=== PATIENT | female | born 1935 | race African-American/Black ===

== ENCOUNTER → 2016-09-28 | Outpatient (CLI) | payer MEDICARE ==
[~2016-09-28] VITALS: Ht 160 cm; Wt 51.7 kg
[~2016-09-28] MED LIST: CATAPRES0.1 MG ORAL; CATAPRES0.2 MG ORAL; no medication
[2016-09-28 16:27] VITALS: BP 223/136
--- NOTE | 2016-09-28 21:28 | Consultation ---
DATE OF CONSULTATION: 09/28/2016 CHIEF COMPLAINT: Weight loss. HISTORY OF PRESENT ILLNESS: The patient is a very pleasant 80-year-old female without any significant past medical history. This is a patient of Dr. Patel. She lost about 6 pounds over the last few months, unwanted. There is no change in bowel habit. No melena. No hematochezia. PAST MEDICAL HISTORY: None. ALLERGIES: None. MEDICATIONS: None. SOCIAL HISTORY: Denies any tobacco, alcohol, or drug abuse. FAMILY HISTORY: Father had coronary artery disease. Mother had breast cancer. REVIEW OF SYSTEMS: A 10-point review of system was performed and pertinent positives are in the HPI. PHYSICAL EXAMINATION: VITAL SIGNS: Temperature is 97.6, pulse 93 respirations 20, blood pressure 224/120, and saturations 100%. HEENT: Normocephalic and atraumatic. Sclerae anicteric. NECK: Supple. No evidence of lymphadenopathy. CARDIOVASCULAR: Regular rate and rhythm. Plus S1 and S2. LUNGS: Clear breath sounds bilaterally. ABDOMEN: Soft and nontender. No rebound. No guarding. EXTREMITIES: No cyanosis. No clubbing. No edema. ASSESSMENT: The patient is a 80-year-old female with unwanted weight loss endoscopy and colonoscopy. PLAN: Schedule the patient for endoscopy and colonoscopy on 10/06/2016. On the procedure day, we will check labs including CBC, CMP, and tumor markers. If the endoscopy and colonoscopy are negative, we will plan to do a plain CT for evaluation of weight loss. I want to thank Dr. Patel for this kind referral. Keven Kendrick M.D. DR: AMAN JOB#: [id number] CC:
== END | disposition home or self-care (01) ==
LOC: PAN 13:44
DX: R63.4 Abnormal weight loss (principal); Z82.49 Family history of ischemic heart disease and other diseases of the circulatory system; Z80.3 Family history of malignant neoplasm of breast
CPT/HCPCS: 99202

== ENCOUNTER → 2016-10-06 | Day surgery (SDC) | payer MEDICARE ==
[2016-10-06] VITALS (7 sets, daily range): BP systolic 141–178; BP diastolic 75–90
[~2016-10-06] VITALS: Ht 160 cm; Wt 52.2 kg
[~2016-10-06] MED LIST changes: +LR 1000ml ONE; +Lidocaine 1% MPF 10mg/ml 5ml ONE; +Propofol 10mg/ml 20ml IV ONE
--- NOTE | 2016-10-06 09:29 | Short Stay Surgery H&P ---
History of Present Illness History of Present Illness Chief Complaint wt loss see recent consult note HPI Alison Seth is a 81 year old female who was admitted on for Weight Loss Patient History Allergies: Coded Allergies: No Known Allergies (Unverified , 09/28/16) PAST MEDICAL HISTORY: Past Surgeries: Social History: Medication History Miscellaneous Medications [no medication ], (Reported) Plan Attestation Are the patient's medical conditions optimized for surgery? YUNIOR LUNA Oct 06, 2016 09:29
--- NOTE | 2016-10-06 09:29 | Pre-Procedure Note/Attestation ---
Pre-Procedure Note/Attestation Complete Prior to Procedure Planned Procedure: not applicable Procedure Narrative: egd/colon Indications for Procedure Pre-Operative Diagnosis: wt loss Attestation I attest that I discussed the nature of the procedure; its benefits; risks and complications; and alternatives (and the risks and benefits of such alternatives ), prior to the procedure, with the patient (or the patient's legal customer development representative). I attest that, if there was a reasonable possibility of needing a blood transfusion, the patient (or the patient's legal customer development representative) was given the [facility] standardized written summary, pursuant to the [place] Blood Safety Act ([place] Health and Safety Code # 1645, as amended). I attest that I re-evaluated the patient just prior to the surgery and that there has been no change in the patient's H&P, except as documented below: YUNIOR LUNA Oct 06, 2016 09:29
--- NOTE | 2016-10-06 10:48 | Endoscopy Procedure Note ---
Endoscopy Procedure Note Indication for Procedure: wt loss Procedures Performed: EGD, colonoscopy Operative Findings/Diagnosis: one polyp Specimen: yes Pt Tolerated Procedure Well: Yes Estimated Blood Loss: none Anesthesiologist: latoya Anesthesia: MAC Implant(s) used?: No 50 yrs or older w/o bx or poly: No 10yrs. F/U not recommended: Yes If not recommended, why?: Above average risk 10 yrs. F/U needed: Yes 18 years or older w/prev. colo: No YUNIOR LUNA Oct 06, 2016 10:48
--- NOTE | 2016-10-06 10:55 | Immediate Post-Op Evaluation ---
Immediate Post-Op Evalulation Immediate Post-Op Evalulation Procedure: egd/colonoscopy Date of Evaluation: Oct 06, 2016 Time of Evaluation: 10:53 IV Fluids: 500 Blood Pressure Systolic: 147 Blood Pressure Diastolic: 58 Pulse Rate: 67 Respiratory Rate: 14 O2 Sat by Pulse Oximetry: 100 Temperature (Fahrenheit): 98.1 Nausea: No Vomiting: No Complications none Patient Status: awake, reacts, patent Hydration Status: adequate Drug: none KAYLIN PIMENTEL CRNA Oct 06, 2016 10:55
--- NOTE | 2016-10-06 10:57 | Anethesia Preoperative Eval ---
Anesthesia Pre-op PMH/ROS General Date of Evaluation: Oct 06, 2016 Time of Evaluation: 10:10 Anesthesiologist: adonis ASA Score: ASA 2 Mallampati Score Class I : Soft palate, uvula, fauces, pillars visible Class II: Soft palate, uvula, fauces visible Class III: Soft palate, base of uvula visible Class IV: Only hard plate visible Mallampati Classification: Class II Surgeon: jack Diagnosis: weight loss Surgical Procedure: EGD/Colonoscopy Anesthesia History: none, PONV Family History: no anesthesia problems Allergies: Coded Allergies: No Known Allergies (Unverified , 09/28/16) Medications: see eMAR Past Medical History Cardiovascular: Reports: HTN Pulmonary: Denies: COPD, KOFI, asthma, other Gastrointestinal/Genitourinary: Denies: CRI, ESRD, GERD, other Neurologic/Psychiatric: Denies: CVA, TIA, dementia, depression/anxiety, other Endocrine: Denies: DM, hypothyroidism, other, steroids HEENT: Denies: LOVELOCK (L), LOVELOCK (R), cataract (L), cataract (R), glaucoma, other Hematology/Immune: Denies: DVT, anemia, bleeding disorder, other Musculoskeletal/Integumentary: Denies: DDD, DJD, OA, RA, edema, other PSxH Narrative: none Anesthesia Pre-op Phys. Exam Physician Exam Last Vital Signs Date Time Temp Pulse Resp B/P Pulse Ox O2 Delivery O2 Flow Rate FiO2 10/06/16 09:43 98.1 20 178/90 100 Room Air 10/06/16 09:42 75 Constitutional: NAD Neurologic: CN 2-12 intact Cardiovascular: RRR Respiratory: CTA Gastrointestinal: S/NT/ND Airway Exam Mallampati Classification 2 Mallampati Score: Class II MO: full Dentures: no lower, no upper Anesthesia Pre-op A/P Studies Pre-op Studies: EKG - SR Risk Assessment & Plan Plan: mac Status Change Before Surgery: No Pre-Antibiotics Drug: none KAYLIN PIMENTEL CRNA Oct 06, 2016 10:57
--- NOTE | 2016-10-06 11:13 | 48 Hour Post Anesthesia Eval ---
Post Anesthesia Evaluation Procedure: egd/colonoscopy Date of Evaluation: Oct 06, 2016 Time of Evaluation: 11:12 Blood Pressure Systolic: 155 0: 74 Pulse Rate: 70 O2 Sat by Pulse Oximetry: 99 Airway: patent Nausea: No Vomiting: No Hydration Status: adequate Mental Status/LOC: patient returned to baseline Post-Anesthesia Complications: none Follow-up care needed: N/A KAYLIN PIMENTEL CRNA Oct 06, 2016 11:13
--- NOTE | 2016-10-06 17:18 | Procedure Note ---
DATE OF PROCEDURE: 10/06/2016 SURGEON: Keven Kendrick M.D. PROCEDURE: Upper endoscopy with biopsy and colonoscopy with biopsy. ANESTHESIA: Per LYE TREATER, Breanne Tarrillion. INSTRUMENT: Olympus adult flexible upper endoscope and colonoscope. INDICATION: 1. Weight loss. 2. Screening colonoscopy evaluation. REASON FOR PROCEDURE: The procedure, risks, benefits, and possible consequences, including hemorrhage, aspiration, perforation and infection, and alternative treatments, were explained to the patient/legal guardian by Dr. Keven Kendrick and the patient/legal guardian understood and accepted these risks. DESCRIPTION OF PROCEDURE: After informed consent was obtained and the patient was adequately sedated, Olympus upper endoscope was advanced from mouth into the second portion of the duodenum and retroflexion was performed of the stomach. The patient had evidence of diffuse gastritis. Random biopsy from antrum was obtained to rule out H. pylori infection. Otherwise, the rest of the upper endoscopic examination was grossly within normal limits. At this time, the upper endoscope was retrieved and the patient was turned over for colonoscopy. First, a rectal exam was performed, which was normal. Then, the scope was advanced from rectum into the cecum documented by appendiceal orifice, ileocecal valve, and right upper quadrant palpation. Quality of prep was very good. The patient had one diminutive polyp in the rectum area, which was biopsied. The patient had evidence of moderate sigmoid diverticulosis. No obvious mass or other pathology was seen. Retroflexion of rectum showed evidence of medium-sized nonbleeding internal hemorrhoids. The patient tolerated the procedure very well without any complication. SUMMARY OF FINDINGS: 1. Gastritis, status post biopsy to rule out H. pylori infection. 2. One colonic polyp removed, see above for details. 3. Diverticulosis. 4. Internal hemorrhoids. RECOMMENDATIONS: 1. Follow up biopsies and treat accordingly. 2. We will send the tumor markers today to rule out CA-19-9 and also the patient to follow up in the office for further workup of weight loss. Keven Kendrick M.D. DR: ERAN JOB#: [id number] CC:
--- NOTE | 2016-10-10 00:14 | Cardiology Report ---
APPROVED REPORT EKG Measurement Heart [id number] Normal sinus rhythm Possible Left atrial enlargement Cannot rule out Anterior infarct, age undetermined Abnormal ECG
== END | disposition home or self-care (01) ==
LOC: GAS 08:48
DX: Z12.11 Encounter for screening for malignant neoplasm of colon (principal); K62.1 Rectal polyp; K57.30 Diverticulosis of large intestine without perforation or abscess without bleeding; K64.8 Other hemorrhoids; R63.4 Abnormal weight loss; K29.70 Gastritis, unspecified, without bleeding; K31.9 Disease of stomach and duodenum, unspecified; I10 Essential (primary) hypertension
CPT/HCPCS: 36415; 43239; 45380; 82150; 83690; 86301; 93005; J2704; J7120; 94003; 94150

== ENCOUNTER → 2016-10-24 | Outpatient (CLI) | payer MEDICARE ==
[~2016-10-24] MED LIST changes: -LR 1000ml ONE; -Lidocaine 1% MPF 10mg/ml 5ml ONE; -Propofol 10mg/ml 20ml IV ONE
[2016-10-24 10:23] VITALS: BP 169/100
--- NOTE | 2016-10-24 10:53 | GI Progress Note ---
Assessment/Plan Problems: (1) Weight loss ICD Codes: R63.4 - Abnormal weight loss SNOMED: 21470532, 831126577 (2) Polyp, colonic ICD Codes: K63.5 - Polyp of colon SNOMED: 77550077 Status: stable Status Narrative Seen with Dr. Kendrick. Assessment/Plan ordered APCT RTC post imaging study repeat colonoscopy x 5 years Subjective Gastrointestinal/Abdominal: Reports: no symptoms Subjective here for colonoscopy review weight loss Objective Last 24 Hour Vital Signs Date Time Temp Pulse Resp B/P Pulse Ox O2 Delivery O2 Flow Rate FiO2 10/24/16 10:23 98.6 80 16 169/100 Weight (Pounds): 116 General Appearance: no apparent distress, alert, thin Cardiovascular: normal rate Respiratory/Chest: normal breath sounds, no respiratory distress Abdominal Exam: normal bowel sounds, non tender, soft Extremities: normal range of motion Meghana Noel N.P. Oct 24, 2016 10:53
== END | disposition home or self-care (01) ==
LOC: PAN 09:50
DX: K63.5 Polyp of colon (principal); R63.4 Abnormal weight loss
CPT/HCPCS: 99211

== ENCOUNTER → 2016-11-06 | Outpatient (CLI) | payer MEDICARE ==
[2016-11-06 08:44] LABS: CREATININE 1.6 mg/dL (0.5-0.9)
--- NOTE | 2016-11-06 13:51 | Diagnostic Imaging Report ---
\H\Indication\N\: Weight loss, history of left breast biopsy, renal insufficiency \H\Technique\N\: No IV contrast, due to history of renal insufficiency. Patient given enteric contrast. Spiral acquisitions obtained through the chest, abdomen, and pelvis. Multiplanar reconstructions were generated. Total dose length product 669 mGycm. CTDIvol(s) 11 mGy. Radiation dose was minimized using automated exposure control \H\Comparison\N\: None \H\Findings\N\: Chest: Bands of linear atelectasis or scarring are seen at the left lung base. Some scarring is seen in the bilateral lung apices. 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 Lungs are otherwise clear. No infiltrates, effusions, congestion, masses, or nodules are demonstrated. The heart size is normal. There is minimal anterior wall pericardial thickening versus fluid. No mediastinal or hilar mass or adenopathy. No axillary or chest wall mass or adenopathy. Breast parenchyma is unusually dense for the patient's age. There is a left breast calcification and possibly associated 9 mm nodule seen in the left breast, image 43 of series 3. This is at about the 11:00 position. The esophagus is mildly distended with gas and there may be some distal esophageal wall thickening. Abdomen pelvis: The appendix is normal. There is extensive colonic diverticulosis. No evidence of diverticulitis. No small bowel distention or small bowel wall thickening. Contrast is seen to traverse the entirety of the small bowel extends well into the colon, reaching the proximal descending. The stomach is unremarkable. There is a small duodenal diverticulum. No free or loculated intraperitoneal air or fluid. Lack of IV contrast limits assessment of the solid organs. The liver, gallbladder, bile ducts, pancreas are unremarkable. 2 subcentimeter low-attenuation lesions are seen within the spleen. The adrenals and kidneys are unremarkable. No retroperitoneal or mesenteric mass or adenopathy. No pelvic mass or adenopathy. Uterus is somewhat prominent for age. It contains a calcification. The bones demonstrate degenerative spondylosis changes. There is slight anterior offset of L4 on L5 and of L5 on S1. No associated pars defect. There is a superior endplate is slight anterior wedge compression fracture deformity of the L2 vertebral body. There are extensive degenerative changes of both hips, possibly posttraumatic changes of the left hip. \H\Impression\N\: Possible 9 mm nodule and calcification 11:00 in the left breast. Correlate with recent breast workup, consider followup mammography and ultrasound as clinically indicated. No acute pulmonary process. There is some scarring in the apices and left lung base Equivocal mild distal esophageal wall thickening, if real could indicate esophagitis No acute abdominal process L2 vertebral body compression fracture, age indeterminate. Consider MRI for better characterization if this is considered clinically relevant 2 subcentimeter splenic lesions, not otherwise characterizable but possibly cysts Diverticulosis. No evidence of diverticulitis Prominent uterus with calcification, probably reflecting fibroid uterus Degenerative spondylosis,, mild spinal alignment abnormality, bilateral hip degenerative changes, left hip possible chronic posttraumatic changes The CT scanner at [facility] is accredited by the [employer] and the scans are performed using protocols designed to limit radiation exposure to as low as reasonably achievable to attain images of sufficient resolution adequate for diagnostic evaluation.
== END | disposition home or self-care (01) ==
LOC: CAT 08:19
DX: R63.4 Abnormal weight loss (principal); K57.90 Diverticulosis of intestine, part unspecified, without perforation or abscess without bleeding; M47.9 Spondylosis, unspecified
CPT/HCPCS: 36415; 71250; 74176; 82565; 84520

== ENCOUNTER 2016-11-14 09:16 | Outpatient (CLI) | payer MEDICARE ==
--- NOTE | 2016-11-14 09:48 | GI Progress Note ---
Assessment/Plan Problems: (1) Esophagitis ICD Codes: K20.9 - Esophagitis, unspecified SNOMED: 17945100 (2) HTN (hypertension) ICD Codes: I10 - Essential (primary) hypertension SNOMED: 95399414 (3) Diverticulum of duodenum ICD Codes: K57.10 - Diverticulosis of small intestine without perforation or abscess without bleeding SNOMED: 878838821 (4) Weight loss ICD Codes: R63.4 - Abnormal weight loss SNOMED: 55097179, 460010417 (5) Polyp, colonic ICD Codes: K63.5 - Polyp of colon SNOMED: 63410559 Status: unchanged Status Narrative Seen with Dr. Kendrick. Assessment/Plan EGD/colonoscopy unremarkable for concerns of weight loss APCT reviewed with patient >> esophagitis, duodenal diverticulum pt being seen for 9mm breast nodule elevated BP >> pt being followed by Dr. Reyes, was last seen yesterday and started on new BP regime. cont protonix RTC x 3 months Subjective Gastrointestinal/Abdominal: Reports: no symptoms Subjective weight loss of 10 lbs over period of 3-4 months, stable now. Objective T 98.0 BP 192/108 P 79 96 RA WT 115.5 >> stable General Appearance: no apparent distress, alert, thin Cardiovascular: normal rate Respiratory/Chest: normal breath sounds, no respiratory distress Abdominal Exam: normal bowel sounds, non tender, soft Extremities: normal range of motion Meghana Noel NPhilip November 14, 2016 09:48
[2016-11-14] MEDS ORDERED: NORMODYNE200 MG ORAL (09:49)
[2016-11-14] MEDS ORDERED: PROTONIX40 MG ORAL (09:49)
== END 2016-11-14 09:51 | disposition home or self-care (01) ==
LOC: PAN 09:16
DX: K57.10 Diverticulosis of small intestine without perforation or abscess without bleeding (principal); K20.9 Esophagitis, unspecified; I10 Essential (primary) hypertension; R63.4 Abnormal weight loss; K63.5 Polyp of colon
CPT/HCPCS: 99211

== ENCOUNTER 2017-02-13 09:06 | Outpatient (CLI) | payer MEDICARE ==
[~2017-02-13 09:06] MED LIST changes: +NORMODYNE200 MG ORAL; +PROTONIX40 MG ORAL
[2017-02-13 09:17] VITALS: BP 137/70
--- NOTE | 2017-02-13 09:34 | GI Progress Note ---
Assessment/Plan Problems: (1) Esophagitis ICD Codes: K20.9 - Esophagitis, unspecified SNOMED: 03082385 (2) Weight loss ICD Codes: R63.4 - Abnormal weight loss SNOMED: 11249203, 721523363 (3) Polyp, colonic ICD Codes: K63.5 - Polyp of colon SNOMED: 52752610 (4) Diverticulum of duodenum ICD Codes: K57.10 - Diverticulosis of small intestine without perforation or abscess without bleeding SNOMED: 973463921 Status: stable Status Narrative Discussed with Dr. Kendrick. Assessment/Plan Endoscopy Procedure Note Indication for Procedure: wt loss Procedures Performed: EGD, colonoscopy Operative Findings/Diagnosis: one polyp YUNIOR KENDRICK - Oct 06, 2016 10:48 weight stable RTC prn repeat colonoscopy x 5 years Subjective Subjective wt loss follow up yesterday had the following Breakfast; toast x 1, coffee, boost / ensure x 2 Lunch: Noodles Supper: Pizza 1/2 slice. Enchilada Objective Last 24 Hour Vital Signs Date Time Temp Pulse Resp B/P Pulse Ox O2 Delivery O2 Flow Rate FiO2 02/13/17 09:17 98.3 81 16 137/70 Weight (Pounds): 114 General Appearance: no apparent distress, alert Cardiovascular: normal rate Respiratory/Chest: lungs clear, normal breath sounds Abdominal Exam: normal bowel sounds, non tender, soft Extremities: normal range of motion Meghana Noel N.P. Feb 13, 2017 09:34
== END 2017-02-13 09:45 | disposition home or self-care (01) ==
LOC: PAN 09:06
DX: K20.9 Esophagitis, unspecified (principal); R63.4 Abnormal weight loss; K57.10 Diverticulosis of small intestine without perforation or abscess without bleeding; K63.5 Polyp of colon
CPT/HCPCS: 99211